=== PATIENT | female | born 1965 | race Two or more races ===

== ENCOUNTER 2017-01-02 09:34 | Emergency (ER) | payer OTHER ==
[2017-01-02 09:38] VITALS: TEMP 98.1; BMI 33.6
[2017-01-02] MEDS ORDERED: METOCLOPRAMIDE HCL INJECTION 10 MG/2 ML VIAL IVPB ONE (10:07)
[2017-01-02] MEDS ORDERED: KETOROLAC TROMETHAMINE 30 MG/1 ML VIAL IVPUSH ONE (10:07)
[2017-01-02] MEDS ORDERED: KETOROLAC TROMETHAMINE 30 MG/1 ML VIAL ONE (10:12)
[2017-01-02] MEDS ORDERED: METOCLOPRAMIDE HCL INJECTION 10 MG/2 ML VIAL ONE (10:12)
[2017-01-02 10:42] LABS: BASOPHIL 1.1 % (0-2.0); EOSINOPHIL 1.4 % (0-4.5); MCH 25.2 pg (25.7-33.7); MCHC 31.8 g/dl (32.0-36.0); MEAN CELL VOLUME 79.2 fl (80-96); MEAN PLT VOLUME 8.5 fl (7.5-11.1); NEUTROPHILS 56.5 % (42.8-82.8); PLATELET COUNT 246 K/MM3 (134-434); RDW 13.8 % (11.6-15.6); WHITE BLOOD COUNT 6.3 K/mm3 (4.0-10.0)
--- NOTE | 2017-01-02 10:46 | PDOC ---
History of Present Illness - General Chief Complaint: Lightheaded Stated Complaint: VOMITING Time Seen by Provider: 01/02/17 09:46 History Source: Patient Exam Limitations: No Limitations - History of Present Illness Initial Comments: 01/02/17 10:33 51-year-old female presents to the ED with headache to the forehead region upon awakening associated with nausea and mild dizziness. Patient states was out last night until 3 AM and was drinking alcohol. Pt states when she awoke this morning to get ready for work, her symptoms began. Patient states has drank alcohol before and had to wake up early before and never has had symptoms such as this. Patient denies history of headaches, recent head injury, recent change in appetite, or history of allergies. Patient denies visual changes, neck pain, chest pain, shortness of breath, abdominal pain, diarrhea, or weakness. Timing/Duration: 1-3 hours Severity: moderate (throbbing pressure) Associated Symptoms: reports: headaches, nausea/vomiting Past History - Past Medical History Allergies/Adverse Reactions: Allergies Allergy/AdvReac Type Severity Reaction Status Date / Time No Known Allergies Allergy Verified 01/02/17 10:29 Other medical history: NONE - Reproductive History Is Patient Now?: No - Psycho/Social/Smoking Cessation Hx Anxiety: No Suicidal Ideation: No Smoking History: Never smoked Hx Alcohol Use: Yes (SOCIAL) Drug/Substance Use Hx: No Substance Use Type: None Patient Lives Alone: No Lives with/in: spouse/SO Review of Systems - Review of Systems Able to Perform ROS?: Yes Constitutional: No: Symptoms Reported HEENTM: No: Symptoms Reported Respiratory: No: Symptoms reported Cardiac (ROS): Yes: Lightheadedness ABD/GI: Yes: Nausea. No: Vomiting, Abdominal cramping Musculoskeletal: No: Symptoms Reported Integumentary: No: Symptoms Reported Neurological: Yes: Headache, Dizziness Endocrine: No: Symptoms Reported Hematologic/Lymphatic: No: Symptoms Reported *Physical Exam - Vital Signs Last Vital Signs Temp Pulse Resp BP Pulse Ox 98.1 F 90 20 151/92 97 01/02/17 09:35 01/02/17 09:35 01/02/17 09:35 01/02/17 09:35 01/02/17 09:35 - Physical Exam General Appearance: Yes: Nourished, Appropriately Dressed. No: Apparent Distress HEENT: positive: EOMI, RAHEL. negative: Pale Conjunctivae Neck: positive: Supple Respiratory/Chest: positive: Lungs Clear, Normal Breath Sounds. negative: Respiratory Distress, Accessory Muscle Use Cardiovascular: positive: Regular Rhythm, Regular Rate. negative: Murmur Gastrointestinal/Abdominal: positive: Soft. negative: Tenderness Extremity: positive: Normal Capillary Refill. negative: Pedal Edema Integumentary: positive: Normal Color, Warm, Moist Neurologic: positive: Motor Strength 5/5 (ambulatory) Heart Score/ECG Review - ECG Intrepretation Rhythm: Regular Rhythm (normal sinus rhythm at 86. no acute findings) ED Treatment Course - LABORATORY CBC & Chemistry Diagram: 01/02/17 10:09 01/02/17 10:09 - RADIOLOGY Radiology Studies Ordered: Category Date Time Status HEAD CT WITHOUT CONTRAST [CT] Stat CT Scan 01/02/17 09:57 Ordered - Medications Given in the ED: ED Medications Discontinued Medications Generic Name Dose Route Start Last Admin Trade Name Freq PRN Reason Stop Dose Admin Ketorolac Tromethamine 30 mg 01/02/17 10:07 01/02/17 10:28 Toradol Injection - IVPUSH 01/02/17 10:08 30 mg ONCE ONE Administration Metoclopramide HCl 10 mg 01/02/17 10:07 01/02/17 10:28 Reglan Injection - IVPB 01/02/17 10:08 10 mg ONCE ONE Administration Medical Decision Making - Medical Decision Making 01/02/17 10:26 Patient here with complaints of headache dizziness and nausea upon awaking this morning. Patient had normal orthostatic vitals. Patient had no neurofocal deficits on exam. Patient to be ordered for head CT given IV fluids, check labs , urine and given antiemetics 01/02/17 11:29 Laboratory Tests 01/02/17 01/02/17 01/02/17 10:09 10:09 10:09 WBC 6.3 Hgb 13.2 Hct 41.4 Plt Count 246 Neutrophils % 56.5 Sodium 141 Potassium 4.7 Chloride 104 Carbon Dioxide 32 Anion Gap 5 L BUN 13 Creatinine 0.7 Random Glucose 123 H Magnesium Albumin 3.7 Ur Specific [place] Pending Urine Nitrite Negative Ur Leukocyte Esterase Negative Urine RBC 1 Urine WBC 1 01/02/17 10:09 WBC Hgb Hct Plt Count Neutrophils % Sodium Potassium Chloride Carbon Dioxide Anion Gap BUN Creatinine Random Glucose Magnesium 2.1 Albumin Ur Specific [place] Urine Nitrite Ur Leukocyte Esterase Urine RBC Urine WBC Patient states feeling better after receiving medication. Patient be discharged home to rest stay well-hydrated eat well-balanced meals. *DC/Admit/Observation/Transfer Diagnosis at time of Disposition: Nausea Headache Qualifiers: Headache type: unspecified Headache chronicity pattern: acute headache Intractability: not intractable Qualified Code(s): R51 - Headache - Discharge Dispostion Disposition: HOME Condition at time of disposition: Improved - Referrals Referrals: STAFF,NOT ON [Primary Care Provider] - - Patient Instructions Printed Discharge Instructions: DI for Headache Additional Instructions: Please stay well-hydrated drink plenty of fluids. Take Tylenol for discomfort and return to ED if symptoms worsen
[2017-01-02 10:52] LABS: URINE APPEARANCE CLEAR; URINE BILIRUBIN NEGATIVE (NEGATIVE); URINE BLOOD NEGATIVE (NEGATIVE); URINE COLOR LTYELLOW; URINE GLUCOSE (UA) NEGATIVE (NEGATIVE); URINE KETONE NEGATIVE (NEGATIVE); URINE LEUK ESTERASE NEGATIVE (NEGATIVE); URINE NITRITE NEGATIVE (NEGATIVE); URINE UROBILINOGEN NEGATIVE E.U./dl (0.2-1.0)
[2017-01-02 10:53] LABS: URINE PROTEIN 1+ (NEGATIVE)
[2017-01-02 11:00] LABS: ALBUMIN 3.7 g/dl (3.4-5.0); ANION GAP 5 (8-16); BILIRUBIN,TOTAL 0.2 mg/dL (0.2-1.0); CALCIUM 9.1 mg/dL (8.5-10.1); CO2 32 mmol/L (21-32); CREATININE 0.7 mg/dL (0.55-1.02); GLUCOSE,RANDOM 123 mg/dL (74-106); SGOT/AST 21 U/L (15-37); SGPT/ALT 28 U/L (12-78); TOT PROT 7.7 g/dl (6.4-8.2)
[2017-01-02 11:01] LABS: URINE MUCUS RARE; URINE RBC 1 /hpf (0-3); URINE WBC 1 /hpf (3-5)
[2017-01-02 11:14] LABS: ALK PHOS 117 U/L (45-117); TROPONIN I < 0.02 ng/ml (0.00-0.05)
[2017-01-02 11:50] VITALS: BP 130/87; PULSE 84
--- NOTE | 2017-01-02 16:28 | EKG ---
Test Reason : Blood Pressure : / mmHG Vent. Rate : 086 BPM Atrial Rate : 086 BPM P-R Int : 182 ms QRS Dur : 090 ms QT Int : 374 ms P-R-T Axes : 067 036 065 degrees QTc Int : 447 ms NORMAL SINUS RHYTHM POSSIBLE LEFT ATRIAL ENLARGEMENT NONSPECIFIC T WAVE ABNORMALITY ABNORMAL ECG NO PREVIOUS ECGS AVAILABLE Confirmed by CARLOS RUGGIERO MD ([id number]) on 01/02/2017 4:27:44 PM Referred By: Confirmed By:CARLOS RUGGIERO MD
== END 2017-01-02 11:50 | disposition home or self-care (01) ==
LOC: JER 09:34
PROC: 3E033GC Introduction of Other Therapeutic Substance into Peripheral Vein, Percutaneous Approach (ICD-10-PCS; principal; 2017-01-02)
PROC: 3E033GC Introduction of Other Therapeutic Substance into Peripheral Vein, Percutaneous Approach (ICD-10-PCS; 2017-01-02)
DX: R51 Headache (principal)
CPT/HCPCS: 36415; 70450-TC; 80053; 81003; 81015; 82550; 82553; 83735; 84484; 85025; 93005; 93010; 99282-25